=== PATIENT | male | born 1985 | race Caucasian/White ===

== ENCOUNTER 2017-07-08 09:11 | Emergency (ER) | payer SELFPAY ==
[2017-07-08 09:21] VITALS: BP 133/93
--- NOTE | 2017-07-08 10:14 | RADIOLOGY REPORT (SQ) ---
EXAM DESCRIPTION: HAND RIGHT 3 VIEWS COMPLETED DATE/TIME: 07/08/2017 10:04 am REASON FOR STUDY: crush injury to forearm/hand COMPARISON: None. EXAM PARAMETERS: NUMBER OF VIEWS: Three views. TECHNIQUE: AP, lateral and oblique radiographic images acquired of the right hand. LIMITATIONS: None. FINDINGS: MINERALIZATION: Normal. BONES: No acute fracture or dislocation. No worrisome bone lesions. JOINTS: No effusions. SOFT TISSUES: There is a linear faintly radiopaque foreign body in the volar soft tissues of the hand in the region of the 2nd metacarpal. OTHER: No other significant finding. IMPRESSION: Foreign body. No acute osseous or joint abnormality. TECHNICAL DOCUMENTATION: JOB ID: [id number] [employer]- All Rights Reserved
--- NOTE | 2017-07-08 10:16 | RADIOLOGY REPORT (SQ) ---
EXAM DESCRIPTION: FOREARM RIGHT COMPLETED DATE/TIME: 07/08/2017 10:04 am REASON FOR STUDY: crush injury to forearm/hand COMPARISON: None. NUMBER OF VIEWS: Two views. TECHNIQUE: Two radiographic images acquired of the right forearm, including elbow and wrist in at le ast one projection. LIMITATIONS: None. FINDINGS: MINERALIZATION: Normal. BONES: No acute fracture. There is a small nonunited bone fragment or ossification center in the uln ar styloid. This is not acute. The bone is corticated. SOFT TISSUES: No obvious swelling or foreign body. OTHER: No other significant finding. IMPRESSION: 1. No acute osseous or joint abnormality. 2. There is a small fragment of bone at the tip of the ulnar styloid felt to represent a nonunited o ssification center versus an old nonunited fracture. TECHNICAL DOCUMENTATION: JOB ID: [id number] [employer]- All Rights Reserved
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
[2017-07-08] MEDS ORDERED: ACETAMINOPHEN 325 MG TABLET PO ONE (10:29)
== END 2017-07-08 10:41 | disposition home or self-care (01) ==
LOC: ER 09:11
DX: S50.11XA Contusion of right forearm, initial encounter (principal); S60.551A Superficial foreign body of right hand, initial encounter; S60.511A Abrasion of right hand, initial encounter; W23.0XXA Caught, crushed, jammed, or pinched between moving objects, initial encounter; M79.631 Pain in right forearm; M79.641 Pain in right hand; F17.200 Nicotine dependence, unspecified, uncomplicated
CPT/HCPCS: 99283